=== PATIENT | male | born 1965 | race Caucasian/White ===

== ENCOUNTER 2024-04-10 15:22 | Outpatient (CLI) | payer OTHER | END 2024-04-10 15:29 | disposition home or self-care (01) | LOC: LAB 15:22 | PROVIDERS: ATTEND Urology | DX: R97.20 Elevated prostate specific antigen [PSA] (principal) ==

== ENCOUNTER 2024-05-01 07:36 | Outpatient (CLI) | payer OTHER | END 2024-05-01 07:45 | disposition home or self-care (01) | LOC: SONOGRAMA 07:36 | PROVIDERS: ATTEND Urology | DX: C61 Malignant neoplasm of prostate (principal); N40.1 Benign prostatic hyperplasia with lower urinary tract symptoms; R97.20 Elevated prostate specific antigen [PSA] ==